=== PATIENT | female | born 1965 | race Caucasian/White ===

== ENCOUNTER → 2016-12-18 | Outpatient (REF) | payer OTHER ==
[~2016-12-18] MED LIST: ACET65TA OR; ALEVE PO; B COMPLEX VIT PO; IMIT50TA OR; LEXAPRO OR; [UNRECOGNIZED DRUG - OTHER] PO
== END ==
LOC: M SFHCWAGY 11:29
PROVIDERS: ATTEND Nurse Practitioner Women's Health
DX: Z12.4 Encounter for screening for malignant neoplasm of cervix (principal); R87.610 Atypical squamous cells of undetermined significance on cytologic smear of cervix (ASC-US)

== ENCOUNTER → 2017-03-31 | Outpatient (CLI) | payer OTHER ==
[~2017-03-31] MED LIST changes: +ALLE180T33 PO; +AMLO2.5T PO; +B COTAB5 PO; +FLUT1SPR2; +LEXA1TAB PO; +MONT10TA2 PO; +TAMO20TA4 PO
--- NOTE | 2017-03-31 22:45 | ECHO ---
DATE OF PROCEDURE: 03/31/2017 REFERRING PHYSICIAN: Cecy Clayton MD INDICATION: Chemotherapy drugs that may affect the heart. HEIGHT: 63 inches WEIGHT: 151 pounds 2D MEASUREMENTS: Ventricular septum: 1.08 cm Posterior wall: 1.06 cm Left ventricle diastole: 4.3 cm Left atrium: 3.7 cm Aortic root: 3.7 cm LVOT: 2.1 cm DOPPLER MEASUREMENTS: Aortic valve velocity: 104 cm/s LVOT velocity: 168 cm/s LVOT VTI: 40.8 cm Mitral E velocity: 70.7 cm/s Mitral A velocity: 74.0 cm/s Mitral deceleration time: 250 ms Pulmonary artery systolic pressure 30 mmHg by pulmonary acceleration time method. MITRAL ANNULAR TISSUE DOPPLER: E prime septal: 9.7 cm/s E prime lateral: 9.9 cm/s DESCRIPTION: Rhythm was sinus. Image quality was moderately technically difficult. No pericardial effusion. CONCLUSIONS: 1. Hyperdynamic LV systolic function. LVEF 70-75% by visual estimate. No regional wall motion abnormalities of the left ventricle. Normal LV wall thickness. Normal LV diastolic function phase. 2. No pericardial effusion. 3. Moderately technically difficult echocardiogram.
== END ==
LOC: M CARPUL 10:35
PROVIDERS: ATTEND Internal Medicine
DX: Z01.818 Encounter for other preprocedural examination (principal); C50.919 Malignant neoplasm of unspecified site of unspecified female breast

== ENCOUNTER 2017-06-11 10:51 | Inpatient (IN) | payer OTHER ==
[~2017-06-11] VITALS: Ht 160 cm; Wt 71.5 kg
[~2017-06-11 10:51] MED LIST changes: -ALLE180T33 PO; -AMLO2.5T PO; -B COTAB5 PO; -FLUT1SPR2; -LEXA1TAB PO; -MONT10TA2 PO; -TAMO20TA4 PO
[2017-06-11] MEDS ORDERED: TAMO20TA4 PO (11:06)
[2017-06-11] MEDS ORDERED: MONT10TA2 PO (11:06)
[2017-06-11] MEDS ORDERED: LEXA1TAB PO (11:06)
[2017-06-11] MEDS ORDERED: AMLO2.5T PO (11:06)
[2017-06-11 11:35] LABS: BASO % 0.4 % (0.0-1.0); EOS # 0.2 10^3/uL (0.0-0.50); EOS % 2.8 % (0.0-3.0); IMMATURE GRANULOCYTE % 0.1 % (0-0); LYMPH # 1.7 10^3/uL (1.5-4.5); LYMPH % 24.1 % (24.0-44.0); MEAN CORPUSCULAR HEMOGLOBIN 28.7 pg (27.0-33.0); MEAN CORPUSCULAR HGB CONC 32.6 g/dl (32.0-36.5); MEAN CORPUSCULAR VOLUME 88.1 fl (80.0-96.0); MONO # 0.8 10^3/uL (0.0-0.8); MONO % 11.6 % (0.0-5.0); NEUTROPHILS # 4.4 10^3/uL (1.8-7.7); PLATELET COUNT, AUTOMATED 309 10^3/uL (150-450); WHITE BLOOD COUNT 7.2 10^3/uL (4.0-10.0)
[2017-06-11 11:39] LABS: ADD MANUAL DIFFER NO; DIFF SLIDE NUMBER 210
[2017-06-11] MEDS ORDERED: MECLIZINE 25 MG TABLET PO ONE (11:45)
[2017-06-11 11:57] LABS: ANION GAP 4 MEQ/L (8-16); BLOOD UREA NITROGEN 11 MG/DL (7-18); CALCIUM LEVEL 9.3 MG/DL (8.5-10.1); CARBON DIOXIDE LEVEL 31 MEQ/L (21-32); CHLORIDE LEVEL 105 MEQ/L (98-107); CREATININE FOR GFR 0.76 MG/DL (0.55-1.02); GLOMERULAR FILTRATION RATE > 60.0 (>51); GLUCOSE, FASTING 103 MG/DL (70-105); POTASSIUM SERUM 3.8 MEQ/L (3.5-5.1); SODIUM LEVEL 140 MEQ/L (136-145)
--- NOTE | 2017-06-11 12:20 | REP ---
CT Head without contrast HISTORY: Visual changes COMPARISON: 07/06/2010 There is no intraparenchymal hemorrhage, acute infarct, mass or midline shift. The ventricular system is normal in appearance. There is no extra cerebral collection. There is no fracture. The visualized sinuses are clear. IMPRESSION: There is no intracranial lesion. Signed by Landon Calderón MD 06/11/2017 12:11 P
--- NOTE | 2017-06-11 15:08 | REP ---
MRA BRAIN WITHOUT CONTRAST: HISTORY: Visual change. There is no aneurysm, arteriovenous malformation or atherosclerotic lesion. Major intracranial vessels are patent. The left vertebral artery is dominant. IMPRESSION: Normal MRA brain. Signed by Landon Calderón MD 06/11/2017 03:18 P
--- NOTE | 2017-06-11 15:10 | REP ---
MR BRAIN WITHOUT CONTRAST: HISTORY: Visual change. COMPARISON: CT 06/11/2017. A single punctate focus of increased signal intensity on T2-weighted images is present in the subcortical white matter of the left parietal lobe. There is no intraparenchymal hemorrhage, infarct, mass or midline shift. The ventricular system is normal in appearance. There is no extracerebral collection. The visualized sinuses are clear. IMPRESSION: There is a single punctate focus of increased signal intensity in the subcortical white matter of the left parietal lobe. This is a nonspecific finding. Signed by Landon Calderón MD 06/11/2017 03:18 P
[2017-06-11] MEDS ORDERED: B COTAB5 PO (17:02)
[2017-06-11] MEDS ORDERED: ALLE180T33 PO (17:02)
[2017-06-11] MEDS ORDERED: FLUT1SPR2 (17:02)
[2017-06-11] MEDS ORDERED: EXCEDRIN MIGRAINE TABLET PO PRN (17:15)
[2017-06-11] MEDS ORDERED: PERCOCET 5MG/325MG TAB PO PRN (17:15)
[2017-06-11] MEDS ORDERED: FLUTICASONE PROP 0.05% NASAL SPRAY 16 GM (FLONASE) PRN (17:15)
[2017-06-11] MEDS ORDERED: ONDANSETRON 4MG/2ML VIAL (J2405) IV PRN (17:15)
[2017-06-11] MEDS ORDERED: FEXOFENADINE 60 MG TAB PO PRN (17:15)
[2017-06-11 17:28] LABS: T UPTAKE 29 % (30-39); THYROXINE (T4) 9.3 UG/DL (4.5-12.0)
[2017-06-11 18:18] LABS: FOLATE > 24.0 NG/ML; VITAMIN B12 LEVEL 672 PG/ML
--- NOTE | 2017-06-11 18:59 | REP ---
BILATERAL LOWER EXTREMITY DUPLEX VEINS: HISTORY: Rule out DVT right lower extremity. There are no filling defects in the deep venous system. The deep venous system is patent. IMPRESSION: There is no deep venous thrombosis. LEFT LOWER EXTREMITY: There are no filling defects in the deep venous system. The deep venous system is patent. IMPRESSION: Thee is no deep venous thrombosis. Signed by Landon Calderón MD 06/11/2017 07:12 P
--- NOTE | 2017-06-11 22:02 | HPE ---
DATE OF ADMISSION: 06/11/2017 PRIMARY CARE PHYSICIAN: Dr. Correia ONCOLOGIST: [place]. CHIEF COMPLAINT: Lightheaded, visual aura, and paresthesias to the left side of the body. HISTORY OF PRESENT ILLNESS: The patient is a 52-year-old female with a history of migraines who presented after having an aura of light this morning. Shortly thereafter it was followed by a feeling of lightheadedness and with some blurry vision. She had difficulty remembering a new coworker's name and then shortly thereafter developed paresthesias, numbness, and tingling i bilateral feet; however, it resolved in the right foot and persisted in the left foot and then continued to the left side of the face and her left arm, prompting her to present to the emergency room. It had been coming and going intermittently. She denies associated headache, chest pain, fevers, chills, nausea, vomiting, diarrhea, sick contacts, recent medication changes. She tells me that she has been treated for breast cancer, and she was on Taxol May through August 2016 and also Herceptin May of 2016 to May 2017. She is currently on tamoxifen and follows in [place]. Otherwise, at the present time her paresthesia is currently gone, but she feels as though as it may come back in the next several hours or minutes, as it has been waxing and waning throughout the day. PAST MEDICAL HISTORY: 1. Breast cancer. 2. Migraines. 3. Anxiety. 4. Seasonal allergies. HOME MEDICATIONS: - Norvasc 2.5 mg daily - Lexapro 20 mg daily - Caroline 180 mg as needed allergies - fluticasone 0.05% spray nasally twice a day as needed for congestion - Singulair 10 mg daily - tamoxifen 20 mg daily - vitamin B and C complex one tablet daily PAST SURGICAL HISTORY: 1. Mastectomy in 2016 in [place]. 2. Dilatation and curettage. 3. Tubal ligation. 4. Basal cell carcinoma removal on her chest. 5. Colonoscopy. 6. Esophagogastroduodenoscopy (EGD). 7. Breast implants. ALLERGIES: She has no known drug allergies. 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 Denies alcohol or any tobacco or illicit drug use. FAMILY HISTORY: Noncontributory. REVIEW OF SYSTEMS: Negative other than in history of present illness (HPI). PHYSICAL EXAMINATION: Temperature 98, pulse 76, respiratory rate 16, blood pressure (BP) 142/80, oxygen saturation 95% in room air. GENERAL: She is a very pleasant, middle-aged female lying in a stretcher at a 30-degree angle. She does not appear to be in any acute distress. HEENT: Cranial nerves II-XII are grossly intact. She has moist mucous membranes. No elevation in central venous pressure (CVP). CARDIOVASCULAR: S1, S2, regular. RESPIRATORY: Clear. ABDOMEN: Obese. EXTREMITIES: No clubbing, cyanosis, or edema. Strength is 5/5. NEUROLOGIC: Nonfocal. She has good strength in all four extremities. LABORATORY STUDIES: WBC 7.2, hemoglobin 12.1, platelet count 309. Chemistry panel: Sodium 140, potassium 3.9, chloride 105, bicarbonate 31, BUN 11, creatinine 0.7. One set of cardiac enzymes is negative. Lyme disease is pending. IMAGING: The patient did have an MRI of the brain, which revealed single punctate focus with increased signal intensity in the subcortical white matter in the left parietal lobe, nonspecific finding. Also she had an MRA of the brain, which was normal. She had a CT scan of the head, which revealed no intracranial lesion. ASSESSMENT AND PLAN: This is a 52-year-old female with a history of migraines, presenting now with aura and paresthesias. 1. Paresthesias following an aura. It is certainly possible this is an atypical migraine; however, she was also on Taxol, which is noted to cause peripheral neuropathy. MRI is currently unrevealing. Will admit her to telemetry and continue with neurologic checks as well as Dr. Castillo of neurology, who has requested a cervical spine MRI, which has been ordered, and he will see her in consultation. Will check an electroencephalogram (EEG) as well as duplex of the bilateral lower extremities. I will provide her with as-needed Excedrin to see if abortive therapy does improve her symptoms. 2. Anxiety. Continue with Lexapro. 3. Seasonal allergies. Continue with Caroline, fluticasone, and Singulair. 4. Breast cancer. Continue with tamoxifen. 5. Hypertension, mild. Continue with Norvasc. 6. Deep vein thrombosis (DVT) prophylaxis. She will be on Lovenox. DISPOSITION: She is admitted to progressive care unit under Dr. Cadena's service, who will continue following the patient next a.m.
[2017-06-11 22:30] VITALS: BP 149/91
--- NOTE | 2017-06-11 22:50 | REPUSA ---
MRI cervical spine without contrast Clinical statement: Paresthesias. Technique: Multiecho multiplanar MRI images of the cervical spine were obtained without administratio n of contrast. No comparison is available. Findings: The cervical vertebral bodies are in satisfactory position and alignment. No fractures or d islocations are demonstrated. Normal heterogeneous bone marrow signal is noted. No osseous tumors are seen. The visualized portions of the posterior fossa are unremarkable. The cervical cranial junction is intact. The intervertebral disc spaces and heights are well-maintained. The facet joints are inta ct without evidence of subluxation. The cervical spinal cord demonstrates normal signal and contour. The surrounding soft tissues are within normal limits. At the C5/C6 disc level, there is a mild disc bulge causing effacement of the anterior thecal sac. Th ere is no disc herniation or central canal stenosis. The neural foramina are patent bilaterally. Impression: Minimal disc bulging at C5/C6, without evidence of central canal narrowing. Otherwise unr emarkable study.
[2017-06-11] MEDS ORDERED: SLF 3 ML SYR IV PRN (23:15)
[2017-06-12] VITALS: BP 134/76
[2017-06-12 04:00] VITALS: BP 137/79
[2017-06-12 05:43] LABS: MEAN CORPUSCULAR HEMOGLOBIN 28.6 pg (27.0-33.0); MEAN CORPUSCULAR HGB CONC 32.7 g/dl (32.0-36.5); MEAN CORPUSCULAR VOLUME 87.7 fl (80.0-96.0); RED CELL DISTRIBUTION WIDTH 13.9 % (11.5-14.5); WHITE BLOOD COUNT 5.9 10^3/uL (4.0-10.0)
[2017-06-12] MEDS ORDERED: SLF 3 ML SYR IV SCH (06:00)
[2017-06-12 06:10] LABS: ANION GAP 9 MEQ/L (8-16); BLOOD UREA NITROGEN 11 MG/DL (7-18); CALCIUM LEVEL 8.6 MG/DL (8.5-10.1); CARBON DIOXIDE LEVEL 27 MEQ/L (21-32); CHLORIDE LEVEL 105 MEQ/L (98-107); CREATININE FOR GFR 0.66 MG/DL (0.55-1.02); GLOMERULAR FILTRATION RATE > 60.0 (>51); GLUCOSE, FASTING 98 MG/DL (70-105); POTASSIUM SERUM 3.8 MEQ/L (3.5-5.1); SODIUM LEVEL 141 MEQ/L (136-145)
--- NOTE | 2017-06-12 07:50 | ECGEPIP ---
Stationary ECG Study [facility] - ED Test Date: 2017-06-11 Pat Name: JEWELL ROSARIO Department: Room: - Gender: F Budder: brisa : 1965 Requested By: Tila Foster Order Number: [id number] Reading MD: Tila Foster Measurements Intervals [place] Rate: 63 P: 23 MS: 183 QRS: 50 QRSD: 88 T: -30 QT: 379 QTc: 390 Interpretive Statements SINUS RHYTHM NONSPECIFIC T-WAVE ABNORMALITY NO PRIOR FOR COMPARISON Electronically Signed On 06-12-2017 7:50:15 EDT by Tila Foster
[2017-06-12 08:00] VITALS: BP 138/91
[2017-06-12 08:18] VITALS: BP 138/91
[2017-06-12] MEDS ORDERED: VITAMIN B COMPLEX/VIT C CAP PO SCH (09:00)
[2017-06-12] MEDS ORDERED: ENOXAPARIN 40 MG/0.4 ML SYRINGE (J1650) SC SCH (09:00)
[2017-06-12] MEDS ORDERED: TAMOXIFEN CITRATE 10 MG TAB PO SCH (09:00)
[2017-06-12] MEDS ORDERED: MONTELUKAST 10 MG TAB PO SCH (09:00)
[2017-06-12] MEDS ORDERED: ESCITALOPRAM OXALATE 10 MG TAB (LEXAPRO) PO SCH (09:00)
[2017-06-12 11:57] VITALS: BP 132/77
[2017-06-12 12:33] VITALS: BP_SYST 131; BP_SYST 135; BP_SYST 142; BP_DIAS 58; BP_DIAS 65; BP_DIAS 66
--- NOTE | 2017-06-12 16:47 | DS.PDOC ---
Discharge Summary General Date of Admission Jun 11, 2017 at 17:12 Date of Discharge 06/12/17 Attending Physician: MARY LOU ALVAREZ MD Specialist/Consultants Involve: АЛЕКСАНДР MACK MD Discharge Summary PROCEDURES PERFORMED DURING STAY: None. ADMITTING/DISCHARGE DIAGNOSES: 1. Paraesthesias, with c -spine disc bulging 2. Pre-syncope - pt refused echo, wanted to f/u with PCP for echo 3. H/o breast ca 4. H/o migraines 5. Anxiety 6. Seasonal allergies. 7. Hypertension COMPLICATIONS/CHIEF COMPLAINT: Paraesthesia HISTORY OF PRESENT ILLNESS/HOSPITAL COURSE: This is a 51 old female past medical history breast cancer status post mastectomy/chemotherapy who presents complaining of paresthesias. Patient states she was stepping outside of her car when she started to get lightheaded, with the paresthesias in bilateral feet and the left upper extremity. The patient and an had episode of disorientation, which are short- lived. No convulsions. No tongue trauma, urinary or fecal incontinence. Patient presented to the ED had an MRA/MRI of the brain that were relatively unremarkable. Patient was evaluated by neurology and felt that this was unlikely and acute neurologic event with recommendations for discharge today. The patient's orthostatics were negative. The patient was also recommended to have an echocardiogram, especially given that she did receive chemotherapy agents which may cause cardiomyopathy. The patient has refused to do so as she' s had serial echocardiograms in the past and will follow-up with her primary care physician to have an echocardiogram soon. The patient was neurologically intact. Hemodynamically stable. Will be discharged today. DISCHARGE MEDICATIONS: Please see below. ALLERGIES: Please see below. PHYSICAL EXAMINATION ON DISCHARGE: Vitals: (see below) General: No acute distress, laying comfortably in bed. HEENT: Moist mucous membranes. Neck: No JVD or lymphadenopathy Cardiac: RRR, No murmurs Pulm: Clear to auscultation b/l. No wheezing, rhonchi Abd: NT/ND + BS Ext: No edema or cyanosis Neuro: Strength 5/5 BUE and BLE. CN 2-12 intact. F to N intact Negative pronator drift. Negative Babinki. Sensation to fine touch and pinprick intact BLE/BUE. LABORATORY DATA: Please see below. IMAGING: MRI Brain 06/11/17 IMPRESSION: There is a single punctate focus of increased signal intensity in the subcortical white matter of the left parietal lobe. This is a nonspecific finding. MRA Brain 06/11/17 IMPRESSION: Normal MRA brain. MRI C-spine 06/11/17 Impression: Minimal disc bulging at C5/C6, without evidence of central canal narrowing. Otherwise unremarkable study. Venous u/s 06/11/17 IMPRESSION: Thee is no deep venous thrombosis. PROGNOSIS: Fair ACTIVITY: As tolerated. DIET: Low Na DISCHARGE PLAN/DISPOSITION: Home DISCHARGE INSTRUCTIONS: 1. F/u with PCP and Neuro in 1-2 weeks. DISCHARGE CONDITION: Stable. TIME SPENT ON DISCHARGE: Greater than 30 minutes. Vital Signs/I&Os Vital Signs Date Time Temp Pulse Resp B/P (MAP) Pulse Ox O2 Delivery O2 Flow Rate FiO2 06/12/17 12:33 68 142/66 (91) 80 131/65 (87) 96 135/58 (83) 06/12/17 11:57 97.8 18 100 Room Air I&O- Last 24 Hours up to 6 AM 06/13/17 06:00 Intake Total 780 ml Balance 780 ml Laboratory Data Labs 24H Laboratory Tests 2 06/11/17 17:46: Erythrocyte Sedimentation Rate 18 06/12/17 05:27: Anion Gap 9, Glomerular Filtration Rate > 60.0, Blood Urea Nitrogen 11, Creatinine 0.66, Sodium Level 141, Potassium Level 3.8, Chloride Level 105, Carbon Dioxide Level 27, Calcium Level 8.6 CBC/BMP Laboratory Tests 06/12/17 05:27 Red Blood Count 3.98 L, Mean Corpuscular Volume 87.7, Mean Corpuscular Hemoglobin 28.6, Mean Corpuscular Hemoglobin Concent 32.7, Red Cell Distribution Width 13.9, Calcium Level 8.6 Discharge Medications Scheduled Amlodipine Besylate (Amlodipine Besylate) 2.5 Mg Tab, 2.5 MG PO DAILY, (Reported ) Escitalopram Oxalate (Lexapro) 10 Mg Tab, 10 MG PO DAILY, (Reported) Montelukast Sodium (Montelukast Sodium) 10 Mg Tab, 10 MG PO DAILY, (Reported) Tamoxifen Citrate (Tamoxifen Citrate) 20 Mg Tab, 20 MG PO DAILY, (Reported) Vitamin B Complex/Vit C (B Complex/C) 1 Tab Tab, 1 TAB PO DAILY, (Reported) Scheduled PRN Fexofenadine Hydrochloride (Caroline Allergy) 180 Mg Tab, 180 MG PO DAILY PRN for ALLERGIES, (Reported) Fluticasone Propionate (Fluticasone Propionate 0.05%) 120 [place]/16 Gm Naspr, 1 SPRAY NA BID PRN for CONGESTION, (Reported) PER NOSTRIL Allergies Coded Allergies: No Known Allergies (Verified , 12/12/09) MARY LOU ALVAREZ MD Jun 12, 2017 16:47
--- NOTE | 2017-06-13 15:14 | CR ---
DATE OF CONSULTATION: 06/11/2017 REFERRING PHYSICIAN: Dr. Jeanne De Santiago. REASON FOR CONSULTATION: Lightheadedness, tingling, numbness of feet and later left side of body. HISTORY OF PRESENT ILLNESS: Bautista Waller is a 52-year-old woman with history of chronic migraines in the past who was admitted in 2009, with headaches and right arm tingling, numbness. She states that she has been going to [facility] in [place], [place] for her migraines. Her migraines started eight years ago and they stopped four years ago. This morning she was at work when she started feeling dizziness, lightheadedness and tingling, numbness of both feet. When emergency room (ER) physician, Dr. Vences, called me this morning, she stated that her numbness, tingling of feet resolved and she had heaviness of both arms and later had tingling, numbness of left arm and leg. When I saw her in the evening in the emergency department, the patient stated that since this morning she had for episodes of left-sided facial, arm and leg tingling, numbness, lasting for five minutes. This morning when she came to the emergency department, she did not have any headache, but in the evening when I saw her, she complained of 5/10 frontal and occipital headache. She denies any neck or back pain. She denies any head injuries, falls, loss of consciousness, seizures, dysphagia, dysarthria, diplopia or urinary incontinence. PAST MEDICAL HISTORY: 1. History of right-sided breast cancer for which the patient had bilateral mastectomy, chemotherapy, followed by tamoxifen. 2. Anxiety. 3. Migraine. 4. Seasonal allergies. 5. Hypertension. CURRENT MEDICATIONS: - Norvasc 2.5 mg by mouth daily - Lexapro 20 mg by mouth daily - Caroline 180 mg by mouth daily - tamoxifen 20 mg by mouth daily - Singulair 10 mg by mouth daily - vitamin B and C supplements - Flonase nasal spray one spray in each nostril twice a day ALLERGIES: None. 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 She denies smoking, alcohol or illicit drugs. FAMILY HISTORY: No family history of migraines. PHYSICAL EXAMINATION: VITAL SIGNS: Temperature 98, pulse 76, respiratory rate 16, blood pressure 142/80. HEART: Regular rate and rhythm. LUNGS: Clear to auscultation. ABDOMEN: Soft, nontender, nondistended. EXTREMITIES: No pedal edema. No gross musculoskeletal abnormalities. SKIN: No rash on skin. Ears, Nose, throat examination is within normal limits. NEUROLOGIC: The patient is awake, alert, oriented to place, person and time. Normal speech repetition, comprehension and expression. No facial weakness. Tongue and uvula midline. 5/5 strength in all four extremities. No dysmetria or ataxia. Sensation is intact bilaterally. No tremor. There is no clonus. Plantars are downgoing. REVIEW OF SYSTEMS: All systems were reviewed and found to be noncontributory except as mentioned in history of present illness. DIAGNOSTIC STUDIES: MRI and MRA of brain were within normal limits. ASSESSMENT: 1. Migraines with aura, not intractable, without status migrainosus. 2. Dizziness and paresthesias which are likely migrainous. PLAN: 1. MRI cervical spine. 2. Fioricet one tablet by mouth twice a day as needed 3. Trial of gabapentin if her left-sided or bilateral feet tingling numbness sensation persists. 4. The patient will followup with her neurologist in [place], [place].
[2017-06-15 00:06] LABS: Lyme Disease IgG Ab 18 kDa Ban Absent (.); Lyme Disease IgG Ab 23 kDa Ban Absent (.); Lyme Disease IgG Ab 28 kDa Ban Absent (.); Lyme Disease IgG Ab 30 kDa Ban Absent (.); Lyme Disease IgG Ab 39 kDa Ban Absent (.); Lyme Disease IgG Ab 41 kDa Ban Present (.); Lyme Disease IgG Ab 45 kDa Ban Absent (.); Lyme Disease IgG Ab 58 kDa Ban Absent (.); Lyme Disease IgG Ab 66 kDa Ban Absent (.); Lyme Disease IgG Ab 93 kDa Ban Absent (.); Lyme Disease IgG West Blot Int Negative (.); Lyme Disease IgG/IgM Antibodie 1.09 ISR (0.00-0.90); Lyme Disease IgM Ab 23 kDa Ban Absent (.); Lyme Disease IgM Ab 39 kDa Ban Absent (.); Lyme Disease IgM Ab 41 kDa Ban Absent (.); Lyme Disease IgM Ab Quantitati <0.80 index (0.00-0.79); Lyme Disease IgM West Blot Int Negative (.)
== END 2017-06-12 14:18 | disposition home or self-care (01) | DRG 93 ==
LOC: M ED 10:51 → EDBD 10:51 → M ED INP 17:12 → M PCU 22:26
PROVIDERS: ADMIT Internal Medicine; ATTEND Internal Medicine
DX: G83.9 Paralytic syndrome, unspecified (principal); I10 Essential (primary) hypertension; F41.9 Anxiety disorder, unspecified; R55 Syncope and collapse; G43.909 Migraine, unspecified, not intractable, without status migrainosus; C50.911 Malignant neoplasm of unspecified site of right female breast; Z79.899 Other long term (current) drug therapy

== ENCOUNTER → 2017-06-30 | Outpatient (REF) | payer OTHER ==
[~2017-06-30] MED LIST changes: +ALLE180T33 PO; +AMLO2.5T PO; +B COTAB5 PO; +FLUT1SPR2; +LEXA1TAB PO; +MONT10TA2 PO; +TAMO20TA4 PO
[2017-06-30 20:48] LABS: VITAMIN B12 LEVEL 838 PG/ML (247-911)
[2017-07-01 11:15] LABS: CONTROL LINE MONO INT CTR LINE PRESENT
== END ==
LOC: M LAB REF 16:08
PROVIDERS: ATTEND Internal Medicine
DX: R53.83 Other fatigue (principal); G60.9 Hereditary and idiopathic neuropathy, unspecified; R06.02 Shortness of breath

== ENCOUNTER → 2017-07-01 | Outpatient (CLI) | payer OTHER ==
--- NOTE | 2017-07-01 23:06 | ECHO ---
DATE OF PROCEDURE: 07/01/2017 AGE: 52 GENDER: Female HEIGHT: 63 inches WEIGHT: 152 pounds BODY SURFACE AREA: 1.72 m2 PATIENT LOCATION: Outpatient. REFERRING PHYSICIAN: Raymond Clayton MD INDICATION: Potentially cardiotoxic chemotherapy. 2-D MEASUREMENTS: RV: 2.9 cm LV: 4.3 cm Septum: 1.1 cm Posterior wall: 1.0 cm Aortic root: 3.4 cm LA: 3.4 cm LVEF: 65% DOPPLER MEASUREMENTS: AV: 1.0 m/s LVOT: 0.8 cm LVOT: 2.2 cm MV-E: 52, A: 53, EA ratio: 1.0 Early mitral deceleration time: 208 ms A prime: 8.7, A prime: 13, E/E prime ratio: 6 PV: 0.8 m/s Pulmonary artery acceleration time: 123 ms RVSP: 35 mmHg COMMENTS: Normal sinus rhythm without intraventricular conduction disturbance. Normal cardiac chamber sizes, wall thickness and wall motion. Normal-appearing mitral valvular apparatus and leaflet excursion with no posterior systolic buckling. Three equal sized aortic cusps of normal thickness and cusp separation. Normal aortic root size. No apparent intracardiac mass or pericardial effusion. Color flow Doppler study taken from the parasternal and apical projections showed trace tricuspid, but no mitral or aortic insufficiency. Guided continuous wave Doppler of her aortic valve showed a normal peak systolic velocity against LV outflow tract obstruction. Pulsed and continuous wave Doppler of her LV inflow tract taken from the apical four-chamber projection showed normal diastolic filling velocities against mitral stenosis. The filling pattern was also normal with current estimated mean left atrial pressure using pulsed and tissue Doppler of the mitral annulus was within normal limits. Pulsed continuous wave Doppler of her pulmonary trunk showed a normal peak systolic velocity against RV outflow tract obstruction. Her pulmonary artery acceleration time was normal against an elevated pulmonary vascular resistance. Guided continuous wave Doppler of her tricuspid valve allowed our estimation of her right ventricular systolic pressure (upper limits of normal to mildly increased). Her inferior vena cava was normal size. Normal respiratory collapse against an elevated central venous pressure. CONCLUSIONS: Normal left ventricular size, wall thickness and wall motion. Normal left atrial size and Doppler assessment of LV diastolic function.
== END ==
LOC: M CARPUL 08:35
PROVIDERS: ATTEND Internal Medicine
DX: Z01.818 Encounter for other preprocedural examination (principal); C50.919 Malignant neoplasm of unspecified site of unspecified female breast

== ENCOUNTER → 2018-02-10 | Outpatient (CLI) | payer OTHER | LOC: M CARPUL 09:40 | DX: Z01.818 Encounter for other preprocedural examination (principal); Z79.899 Other long term (current) drug therapy; C50.919 Malignant neoplasm of unspecified site of unspecified female breast ==

== ENCOUNTER → 2018-09-21 | Outpatient (CLI) | payer OTHER ==
[~2018-09-21] MED LIST changes: -AMLO2.5T PO; +AMLO2.5T3 PO; -TAMO20TA4 PO; +TAMO20TA8 PO
--- NOTE | 2018-09-21 18:44 | ECHO ---
DATE OF PROCEDURE: 09/21/2018 Date of : 1965 Age: 53 Gender: Female Height: 63 inches Weight: 155 pounds Body surface area: 1.74 meters squared Outpatient REFERRING PHYSICIAN: Dr. Raymond Clayton INDICATION: Potentially cardiotoxic chemotherapy. MEASUREMENTS: 2D measurements: RV: 3.6 cm LV: 4.4 cm Septum: 1.0 cm Posterior wall: 1.0 cm Aortic root: 3.5 cm LA: 3.6 cm LVEF: 65%. Doppler measurements: AV: 1.2 meters per second LVOT: 1.0 meters per second LVOT diameter: 2.0 cm MV-E: 55, A: 45, EA ratio: 1.2 Early mitral deceleration time: 239 milliseconds E prime: 8.7, A prime: 8.9, E/E prime ratio: 6.3 PV: 0.8 meters per second Pulmonary artery acceleration time: 113 milliseconds RVSP: 28 mmHg IVC: 1.6 cm COMMENTS: Normal sinus rhythm without intraventricular conduction disturbance. M-mode and two-dimensional echocardiography was performed along with pulsed, continuous wave, color flow and tissue Doppler studies. Normal cardiac chamber sizes, wall thickness and wall motion. Currently normal Doppler assessment of LV diastolic function and estimated mean left atrial pressure. Normal estimated pulmonary atrial pressure. Normal IVC size and collapse against an elevated central venous pressure. Normal appearing and functioning valvular structures. No apparent intracardiac mass or pericardial effusion.
== END ==
LOC: M CARPUL 08:35
PROVIDERS: ATTEND Internal Medicine
DX: Z01.818 Encounter for other preprocedural examination (principal); C50.919 Malignant neoplasm of unspecified site of unspecified female breast

== ENCOUNTER → 2018-11-06 | Outpatient (CLI) | payer OTHER ==
[2018-11-06 21:18] LABS: ALBUMIN 3.5 GM/DL (3.2-5.2); ALT/SGPT 19 U/L (12-78); BILIRUBIN,TOTAL 0.3 MG/DL (0.2-1.0); BLOOD UREA NITROGEN 11 MG/DL (7-18); CALCIUM LEVEL 8.6 MG/DL (8.5-10.1); CARBON DIOXIDE LEVEL 29 MEQ/L (21-32); CHLORIDE LEVEL 106 MEQ/L (98-107); CREATININE FOR GFR 0.73 MG/DL (0.55-1.30); GLOMERULAR FILTRATION RATE > 60.0 (>51); GLUCOSE, FASTING 98 MG/DL (70-100); SODIUM LEVEL 142 MEQ/L (136-145); TOTAL PROTEIN 7.3 GM/DL (6.4-8.2)
[2018-11-06 21:21] LABS: BASO % 0.3 % (0.0-1.0); EOS # 0.2 10^3/uL (0.0-0.50); EOS % 2.3 % (0.0-3.0); HEMATOCRIT 35.9 % (36.0-47.0); HEMOGLOBIN 11.4 g/dl (12.0-15.5); LYMPH # 3.2 10^3/uL (1.5-4.5); LYMPH % 33.9 % (24.0-44.0); MEAN CORPUSCULAR HEMOGLOBIN 28.6 pg (27.0-33.0); MEAN CORPUSCULAR HGB CONC 31.8 g/dl (32.0-36.5); MONO # 0.7 10^3/uL (0.0-0.8); MONO % 7.7 % (0.0-5.0); NEUTROPHILS # 5.2 10^3/uL (1.8-7.7); NEUTROPHILS % 55.5 % (36.0-66.0); PLATELET COUNT, AUTOMATED 318 10^3/uL (150-450); RED BLOOD COUNT 3.99 10^6/uL (4.00-5.40); WHITE BLOOD COUNT 9.4 10^3/uL (4.0-10.0)
== END ==
LOC: M LRY 19:11
PROVIDERS: ATTEND Internal Medicine
DX: Z01.818 Encounter for other preprocedural examination (principal); C50.919 Malignant neoplasm of unspecified site of unspecified female breast

== ENCOUNTER 2018-12-01 16:27 | Emergency (ER) | payer OTHER ==
[~2018-12-01] VITALS: Ht 160 cm; Wt 72.4 kg
[~2018-12-01 16:27] MED LIST changes: +LEXA1TAB OR; -LEXAPRO OR
[2018-12-01 17:18] LABS: BASO % 0.5 % (0.0-1.0); EOS # 0.2 10^3/uL (0.0-0.50); EOS % 1.9 % (0.0-3.0); HEMATOCRIT 38.4 % (36.0-47.0); HEMOGLOBIN 12.6 g/dl (12.0-15.5); LYMPH # 2.5 10^3/uL (1.5-4.5); LYMPH % 32.2 % (24.0-44.0); MEAN CORPUSCULAR HGB CONC 32.8 g/dl (32.0-36.5); MEAN CORPUSCULAR VOLUME 88.3 fl (80.0-96.0); MONO # 0.8 10^3/uL (0.0-0.8); MONO % 9.8 % (0.0-5.0); NEUTROPHILS # 4.3 10^3/uL (1.8-7.7); NEUTROPHILS % 55.3 % (36.0-66.0); PLATELET COUNT, AUTOMATED 332 10^3/uL (150-450); RED BLOOD COUNT 4.35 10^6/uL (4.00-5.40); WHITE BLOOD COUNT 7.7 10^3/uL (4.0-10.0)
[2018-12-01 17:33] LABS: INR 1.05; PROTHROMBIN TIME 13.8 SECONDS (12.1-14.4)
[2018-12-01 17:49] LABS: ALBUMIN 3.6 GM/DL (3.2-5.2); ALT/SGPT 20 U/L (12-78); BILIRUBIN,DIRECT < 0.1 MG/DL (0.0-0.2); BILIRUBIN,TOTAL 0.3 MG/DL (0.2-1.0); BLOOD UREA NITROGEN 13 MG/DL (7-18); CALCIUM LEVEL 9.2 MG/DL (8.5-10.1); CARBON DIOXIDE LEVEL 26 MEQ/L (21-32); CHLORIDE LEVEL 106 MEQ/L (98-107); CPK CREATINE PHOSPHOKINASE 108 U/L (26-192); CREATININE FOR GFR 0.67 MG/DL (0.55-1.30); GLOMERULAR FILTRATION RATE > 60.0 (>51); GLUCOSE, FASTING 94 MG/DL (70-100); MB/CK RELATIVE INDEX 1.02 (< OR =4); POTASSIUM SERUM 4.1 MEQ/L (3.5-5.1); SODIUM LEVEL 140 MEQ/L (136-145); TOTAL PROTEIN 7.5 GM/DL (6.4-8.2); TROPONIN I < 0.02 NG/ML (< 0.10)
[2018-12-01] MEDS ORDERED: ISOVUE-370 76% 125ML VIAL (Q9967 PER ML) As Ordered ONE (18:13)
--- NOTE | 2018-12-01 18:36 | REP ---
Clinical: Acute shortness of breath. Technique: Axial contrast enhanced images from the thoracic inlet to the upper abdomen using 100 ml Isovue 370 intravenous contrast material with coronal and sagittal re-formations. Findings: Satisfactory enhancement of the pulmonary vasculature is achieved and no filling defects are identified to suggest pulmonary embolus. Mild bibasilar atelectasis (right greater than left) appreciated. 8 mm noncalcified nodule along the right major fissure (image 45) identified. No further consolidation, nodule or mass lesion. No pleural effusion. No pneumothorax. Again bronchial tree is patent. No obvious adenopathy is appreciated. The mediastinum demonstrates relatively normal thoracic aorta, heart and pericardium. Evidence for prior mammoplasty. Osseous structures without focal osseous abnormality. Impression: 1. No evidence for pulmonary embolus. 2. Mild bibasilar atelectasis (right greater left). 3. 8 mm noncalcified nodule inseparable from the right major fissure. Consider repeat chest CT in 3-6 months for reevaluation. Electronically Signed by Richie Fragoso MD 12/01/2018 06:28 P
[2018-12-01 19:21] VITALS: O2SAT 96
[2018-12-01 19:30] VITALS: BP 152/81
--- NOTE | 2018-12-01 20:06 | ECGEPIP ---
Stationary ECG Study 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
--- NOTE | 2018-12-02 10:47 | ED PDOC ---
Post-Departure Follow-Up dr pérez faxed formal report of cta for fu Timothy Carpio MD Dec 02, 2018 10:47
== END 2018-12-01 19:57 | disposition home or self-care (01) ==
LOC: M ED 16:27
DX: R91.1 Solitary pulmonary nodule (principal); R06.02 Shortness of breath; G43.909 Migraine, unspecified, not intractable, without status migrainosus; K44.9 Diaphragmatic hernia without obstruction or gangrene; Z85.3 Personal history of malignant neoplasm of breast; Z79.899 Other long term (current) drug therapy
CPT/HCPCS: 71275; 80048; 80076; 82550; 82553; 84443; 84484; 85025; 85610; 93005; 93041; 94760; 99285; Q9967

== ENCOUNTER → 2018-12-01 | Outpatient (CLI) | payer OTHER ==
--- NOTE | 2018-12-01 15:39 | REP ---
Clinical: Chest pain and shortness of breath . Comparison: None . Technique: PA and lateral. Findings: The mediastinum and cardiac silhouette are normal. The lung hernandez appear relatively well aerated and clear. Minimal scarring at the bilateral costophrenic angles versus trace atelectasis noted. No significant consolidation. No effusion. No pneumothorax. Skeletal structures are intact. Impression: 1. No definite acute process appreciated. Electronically Signed by Richie Fragoso MD 12/01/2018 03:29 P
== END ==
LOC: M LRY 15:14
PROVIDERS: ATTEND Nurse Practitioner Family
DX: R00.2 Palpitations (principal)

== ENCOUNTER → 2019-05-04 | Outpatient (CLI) | payer OTHER ==
[~2019-05-04] MED LIST changes: +ISOVUE-370 76% 100ML VIAL (Q9967) As Ordered ONE
--- NOTE | 2019-05-05 12:02 | REP ---
Clinical: Pulmonary nodule. Comparison: 12/01/2018. Technique: Axial contrast enhanced images from the thoracic inlet to the upper abdomen with coronal and sagittal re-formations. Findings: A somewhat irregular 8 mm noncalcified density is again identified inseparable from the right major fissure (image 57). Its appearance suggests scar rather than true active pathology. Remainder of lung hernandez are well-aerated and clear. No further consolidation, nodule or mass lesion appreciated. No effusion. No pneumothorax. Tracheobronchial tree is patent. No adenopathy. Mediastinum demonstrates normal thoracic aorta, pulmonary vasculature and heart/pericardium. Prior mammoplasty. Skeletal structures are intact. Limited upper abdomen demonstrates 2.4 cm left renal hypodensity compatible with cyst. Impression: 1. Previously identified 8 mm noncalcified density remains essentially stable and likely represent small scar. 2. No further acute mediastinal or pleuroparenchymal process appreciated. Consider follow-up examination at 9 - 12 months to confirm stability. Electronically Signed by Richie Fragoso MD 05/05/2019 05:47 A
== END ==
LOC: M RAD 13:01
PROVIDERS: ATTEND Internal Medicine
DX: R91.1 Solitary pulmonary nodule (principal)
CPT/HCPCS: 71260; Q9967

== ENCOUNTER → 2019-06-03 | Outpatient (CLI) | payer OTHER ==
[~2019-06-03] MED LIST changes: -ISOVUE-370 76% 100ML VIAL (Q9967) As Ordered ONE
--- NOTE | 2019-06-04 16:06 | ECHO ---
DATE OF PROCEDURE: 06/03/2019 DATE OF : 1965 AGE: 54 GENDER: Female HEIGHT: 63 inches WEIGHT: 149 pounds BODY SURFACE AREA: 1.71 m2 OUTPATIENT REFERRING PHYSICIAN: Dr. Raymond Clayton INDICATION: Potentially cardiotoxic chemotherapy. MEASUREMENTS: 2-D Measurements: RV: 3.6 cm LV: 4.1 cm Septum: 1.0 cm Posterior wall: 1.0 cm Aortic root: 3.4 cm LA: 3.5 cm LVEF: 75% Doppler Measurements: AV: 1.1 m/s LVOT: 0.96 m/s LVOT: 2.0 cm MV: E: 79, A: 80, EA ratio: 1 Early mitral deceleration time: 183 ms E prime: 9.1, A prime: 10.4, E/E prime ratio: 8.7 PV: 0.85 m/s Pulmonary artery acceleration time: 100 ms PASP: 34 mmHg IVC: 1.8 cm COMMENTS: Normal sinus rhythm without intraventricular conduction disturbance. M-mode and two-dimensional echocardiography was performed with pulsed, continuous wave, color flow and tissue Doppler studies. Normal left ventricular size, wall thickness and hyperkinetic wall motion. Normal left atrial size and Doppler assessment of LV diastolic function and estimated mean left atrial pressure. Normal right heart chamber sizes and motion with Doppler sign of borderline pulmonary hypertension. Normal IVC size and collapse against an elevated central venous pressure. Normal appearing and functioning valvular structures. No apparent intracardiac mass or pericardial effusion.
== END ==
LOC: M CARPUL 08:35
PROVIDERS: ATTEND Internal Medicine
DX: Z01.818 Encounter for other preprocedural examination (principal); Z79.899 Other long term (current) drug therapy; C50.919 Malignant neoplasm of unspecified site of unspecified female breast

== ENCOUNTER → 2019-06-05 | Outpatient (REF) | payer OTHER ==
[2019-06-05 19:28] LABS: BASO % 0.5 % (0.0-1.0); EOS # 0.2 10^3/uL (0.0-0.5); EOS % 3.2 % (0.0-3.0); HEMATOCRIT 37.6 % (36.0-47.0); HEMOGLOBIN 11.9 g/dl (12.0-15.5); LYMPH % 31.6 % (24.0-44.0); MEAN CORPUSCULAR HGB CONC 31.6 g/dl (32.0-36.5); MEAN CORPUSCULAR VOLUME 91.5 fl (80.0-96.0); MONO # 0.6 10^3/uL (0.0-0.8); MONO % 9.4 % (0.0-5.0); NEUTROPHILS # 3.5 10^3/uL (1.5-8.5); PLATELET COUNT, AUTOMATED 340 10^3/uL (150-450); RED BLOOD COUNT 4.11 10^6/uL (4.00-5.40); WHITE BLOOD COUNT 6.3 10^3/uL (4.0-10.0)
[2019-06-05 19:34] LABS: ALBUMIN 3.4 GM/DL (3.2-5.2); ALT/SGPT 16 U/L (12-78); BILIRUBIN,TOTAL 0.2 MG/DL (0.2-1.0); BLOOD UREA NITROGEN 9 MG/DL (7-18); CALCIUM LEVEL 9.2 MG/DL (8.5-10.1); CARBON DIOXIDE LEVEL 29 MEQ/L (21-32); CHLORIDE LEVEL 106 MEQ/L (98-107); CREATININE FOR GFR 0.68 MG/DL (0.55-1.30); GLOMERULAR FILTRATION RATE > 60.0 (>51); GLUCOSE, FASTING 91 MG/DL (70-100); POTASSIUM SERUM 4.4 MEQ/L (3.5-5.1); SODIUM LEVEL 141 MEQ/L (136-145); TOTAL PROTEIN 6.9 GM/DL (6.4-8.2)
== END ==
LOC: M LABDRWAD 12:12
PROVIDERS: ATTEND Internal Medicine
DX: Z01.818 Encounter for other preprocedural examination (principal); C50.919 Malignant neoplasm of unspecified site of unspecified female breast

== ENCOUNTER → 2019-07-01 | Outpatient (REF) | payer OTHER ==
[2019-07-03 15:57] LABS: HPV HYBRID CAPTURE II Negative (Negative)
== END ==
LOC: M SFHCWAGY 11:22
PROVIDERS: ATTEND Nurse Practitioner Women's Health
DX: Z12.4 Encounter for screening for malignant neoplasm of cervix (principal); R87.610 Atypical squamous cells of undetermined significance on cytologic smear of cervix (ASC-US)
CPT/HCPCS: 87624; G0123

== ENCOUNTER → 2019-07-05 | Outpatient (CLI) | payer OTHER ==
--- NOTE | 2019-07-05 09:33 | REP ---
Clinical: Postmenopausal bleeding. Tamoxifen. Technique: Transabdominal pelvic ultrasound followed by transvaginal examination for better evaluation of the endometrium and adnexa with color Doppler evaluation of the ovaries. Findings: Bladder is under distended but grossly normal and measures 5.2 x 1.5 x 1.7 cm. Heterogeneous retroverted uterus measures 7.7 x 3.8 x 6.6 cm with 8 mm anterior intramural fibroid suggested. Endometrial complex measures between 5.7 and 7.0 mm thickness with suggestions for possible subseptate uterus. Small cystic changes to the endometrial complex are nonspecific. The bilateral ovaries are normal in appearance and vascularity. Right ovary measures 2.2 x 1.6 x 2.1 cm (RI 0.50) and includes 1.2 cm physiologic cyst. Left ovary measures 2.4 x 1.3 x 2.6 cm (RI 0.49) and includes 1 cm cyst. Impression: 1. Heterogeneous retroverted uterus with sub centimeter intramural fibroid and suggestions for subseptate uterus. 2. Bilateral ovaries with small cysts. Electronically Signed by Richie Fragoso MD 07/05/2019 09:25 A
== END ==
LOC: M RAD 08:17
PROVIDERS: ATTEND Nurse Practitioner Women's Health
DX: N95.0 Postmenopausal bleeding (principal); Z85.3 Personal history of malignant neoplasm of breast; Z79.810 Long term (current) use of selective estrogen receptor modulators (SERMs); D25.1 Intramural leiomyoma of uterus; N83.201 Unspecified ovarian cyst, right side; N83.202 Unspecified ovarian cyst, left side; N85.4 Malposition of uterus

== ENCOUNTER → 2020-05-08 | Outpatient (CLI) | payer OTHER ==
[~2020-05-08] MED LIST changes: -MONT10TA2 PO; +MONT10TA4 PO
[2020-05-09 14:23] LABS: ALBUMIN 3.9 GM/DL (3.2-5.2); ALT/SGPT 21 U/L (12-78); BILIRUBIN,TOTAL 0.2 MG/DL (0.2-1.0); BLOOD UREA NITROGEN 14 MG/DL (7-18); CALCIUM LEVEL 9.6 MG/DL (8.5-10.1); CARBON DIOXIDE LEVEL 30 MEQ/L (21-32); CHLORIDE LEVEL 104 MEQ/L (98-107); GLOMERULAR FILTRATION RATE > 60.0 (>51); GLUCOSE, FASTING 93 MG/DL (70-100); POTASSIUM SERUM 4.1 MEQ/L (3.5-5.1); SODIUM LEVEL 139 MEQ/L (136-145); TOTAL PROTEIN 7.8 GM/DL (6.4-8.2)
== END ==
LOC: M LRY 16:04
PROVIDERS: ATTEND Nurse Practitioner Adult Health
DX: C50.919 Malignant neoplasm of unspecified site of unspecified female breast (principal)

== ENCOUNTER → 2022-04-18 | Outpatient (REF) | payer OTHER ==
[~2022-04-18] MED LIST changes: -MONT10TA4 PO; +MONT10TA97 PO
[2022-04-19 13:28] LABS: % LABILE ALKALINE PHOSPHATASE 78.9 %
== END ==
LOC: M LAB REF 11:54
PROVIDERS: ATTEND Internal Medicine
DX: R74.8 Abnormal levels of other serum enzymes (principal)

== ENCOUNTER → 2022-11-28 | Outpatient (CLI) | payer OTHER | LOC: M SLEEP HO 11:19 | PROVIDERS: ATTEND Physician Assistant | DX: R06.83 Snoring (principal); R40.0 Somnolence; G47.9 Sleep disorder, unspecified ==

== ENCOUNTER 2023-12-29 06:56 | Day surgery (SDC) | payer OTHER ==
[~2023-12-29] VITALS: Ht 160 cm; Wt 69.9 kg
[~2023-12-29 06:56] MED LIST changes: +ANAS1TAB2 PO; +CLOB0.0548 TOP; +DEUC6TAB PO; +DIFL200T PO; +KETO2CR EXT; +METO25TA4 PO; +NORV5TAB PO; +RA M500C PO; +TRIA1CR80 TOP; +VENL75CA2 PO
[2023-12-29] MEDS ORDERED: propofoL 200 MG/20 ML VIAL As Ordered ONE (07:12)
[2023-12-29] MEDS ORDERED: LIDOCAINE 2% 100MG/5ML SDV (FOR ANES.) As Ordered ONE (07:12)
[2023-12-29] MEDS: NS 1,000 ML IV ONE (07:20)
[2023-12-29 07:53] VITALS: TEMP 97.2
[2023-12-29 08:14] VITALS: BP 128/72; O2SAT 98
== END 2023-12-29 08:32 | disposition home or self-care (01) ==
LOC: M OPP 06:56
PROVIDERS: ATTEND Internal Medicine Gastroenterology
DX: R19.4 Change in bowel habit (principal); G47.30 Sleep apnea, unspecified; Z99.89 Dependence on other enabling machines and devices; I10 Essential (primary) hypertension; Z79.52 Long term (current) use of systemic steroids; Z79.811 Long term (current) use of aromatase inhibitors; Z79.899 Other long term (current) drug therapy

== ENCOUNTER → 2024-07-13 | Outpatient (REF) | payer OTHER | LOC: M LAB REF 16:13 | PROVIDERS: ATTEND Internal Medicine | DX: R35.0 Frequency of micturition (principal) ==

== ENCOUNTER → 2024-11-30 | Outpatient (CLI) | payer OTHER ==
[~2024-11-30] MED LIST changes: +ISOVUE-370 76% 100ML VIAL ONE
== END ==
LOC: M PLAIMG 13:19
PROVIDERS: ATTEND Physician Assistant Medical
DX: M25.561 Pain in right knee (principal); M25.551 Pain in right hip; M16.11 Unilateral primary osteoarthritis, right hip
CPT/HCPCS: 73701; Q9967

== ENCOUNTER → 2024-11-30 | Outpatient (CLI) | payer OTHER ==
[~2024-11-30] MED LIST changes: -ISOVUE-370 76% 100ML VIAL ONE
[2024-11-30 09:52] LABS: BLOOD UREA NITROGEN 8 MG/DL (9-23); CALCIUM LEVEL 9.8 MG/DL (8.3-10.6); CARBON DIOXIDE LEVEL 28 MMOL/L (20-31); CHLORIDE LEVEL 105 MMOL/L (98-107); CREATININE FOR GFR 0.63 MG/DL (0.55-1.30); GLOMERULAR FILTRATION RATE > 60.0 (>45); GLUCOSE, FASTING 96 MG/DL (74-106); POTASSIUM SERUM 3.7 MMOL/L (3.5-5.1); SODIUM LEVEL 142 MMOL/L (136-145)
== END ==
LOC: M LAB 09:04
PROVIDERS: ATTEND Physician Assistant Medical
DX: C50.919 Malignant neoplasm of unspecified site of unspecified female breast (principal)

== ENCOUNTER → 2025-01-11 | Outpatient (REF) | payer OTHER ==
[2025-01-12 12:23] LABS: MUMPS VIRUS IgG ANTIBODY 19.7 AU/mL (>10.99); RUBEOLA IgG ANTIBODY 44.9 AU/mL (>16.49)
== END ==
LOC: M LAB REF 13:42
PROVIDERS: ATTEND Internal Medicine
DX: Z23 Encounter for immunization (principal)